=== PATIENT | male | born 1985 | race Caucasian/White ===

== ENCOUNTER 2016-09-30 11:44 | Emergency (ER) | payer OTHER ==
[~2016-09-30] VITALS: Ht 175.3 cm; Wt 68.0 kg
[2016-09-30] MEDS ORDERED: fentaNYL 100 mcg/2 mL IV ONE (12:15)
[2016-09-30] MEDS ORDERED: Ketorolac 30mg Inj IV ONE (12:15)
[2016-09-30 13:07] LABS: ALANINE AMINOTRANSFERASE 68 U/L (3-41); ALBUMIN/GLOBULIN RATIO 1.2 (1.0-2.7); ANION GAP 16 (5-15); ASPARTATE AMINO TRANSFERASE 46 U/L (5-40); CALCIUM 9.2 mg/dL (8.6-10.2); CARBON DIOXIDE 27 mEQ/L (20-30); CHLORIDE 91 mEQ/L (98-107); GLOMERULAR FILTRATION RATE > 60 mL/min (>60); HEMOLYSIS 6; POTASSIUM 3.8 mEQ/L (3.4-4.9); SODIUM 134 mEQ/L (135-145); TOTAL PROTEIN 7.3 g/dL (6.6-8.7)
[2016-09-30 13:08] LABS: APPEARANCE,URINE CLEAR; KETONES,URINE NEGATIVE (NEGATIVE); LEUKOCYTE ESTERASE ,URINE NEGATIVE (NEGATIVE); NITRITE,URINE NEGATIVE (NEGATIVE); PH,URINE 6 (4.5-8.0); PROTEIN,URINE NEGATIVE (NEGATIVE); UROBILINOGEN,URINE 1 MG/DL (0.0-1.0)
[2016-09-30 13:24] LABS: BASOPHILS % (AUTO) 1.4 % (0.0-2.0); EOSINOPHILS % (AUTO) 0.3 % (0.0-3.0); LYMPHOCYTES % (AUTO) 21.6 % (20.0-45.0); MEAN CORPUSCULAR HEMOGLOBIN 31.9 PG (27.0-31.0); MEAN CORPUSCULAR HGB CONC 34.3 G/DL (32.0-36.0); MEAN CORPUSCULAR VOLUME 93 FL (80-99); MEAN PLATELET VOLUME 7.8 FL (6.5-10.1); MONOCYTES % (AUTO) 12.7 % (1.0-10.0); PLATELET COUNT 152 K/UL (150-450); RED BLOOD COUNT 4.36 M/UL (4.70-6.10); RED CELL DISTRIBUTION WIDTH 11.1 % (11.6-14.8); WHITE BLOOD COUNT 9.1 K/UL (4.8-10.8)
[2016-09-30 13:27] LABS: INR 1.1 (0.9-1.1); PROTHROMBIN TIME 11.4 SEC (9.30-11.50)
[2016-09-30 13:38] LABS: BILIRUBIN,DIRECT 0.3 mg/dL (0.1-0.3)
[2016-09-30 14:20] VITALS: BP 130/67
--- NOTE | 2016-09-30 14:26 | Diagnostic Imaging Report ---
Indication: Headache Technique: Contiguous 5 mm thick transaxial imaging of the head obtained in a Siemens Sensation [address] scanner. Soft tissue and bone windows generated. Total Dose length Product (DLP): [address] Dose Index Volume (CTDIvol): 70.38 mGy Comparison: none Findings: The size and configuration of the cortical sulci, basal cisterns, and ventricles are within normal limits for age. There is no mass effect, midline shift, or edema identified. There is no evidence of acute hemorrhage or abnormal intra-axial or extra-axial fluid collections. The bones and soft tissues are unremarkable. Impression: No mass effect, edema or acute bleed. The CT scanner at [facility] is accredited by the [employer] and the scans are performed using protocols designed to limit radiation exposure to as low as reasonably achievable to attain images of sufficient resolution adequate for diagnostic evaluation.
--- NOTE | 2016-09-30 14:27 | Diagnostic Imaging Report ---
Indication: Chest Pain Comparison: None A single view chest radiograph was obtained. Findings: Cardiomediastinal appearance is within normal limits for age. Pulmonary vascularity is appropriate. The diaphragmatic contour is smooth and costophrenic angles are sharp. No pleural effusions are identified. The bones are unremarkable. Impression: No acute findings
--- NOTE | 2016-09-30 15:06 | Emergency Room Report ---
History of Present Illness General Chief Complaint: Flu Like Symptoms Source: Patient Present Illness HPI Patient has been ill since Monday. He's been having fevers and worsening sore throat. He said the worst headache of his life. He's had shaking chills. Preceding this he was treated for pharyngeal gonorrhea with Rocephin and azithromycin ( day course - taking BID). Yesterday he saw his doctor and got a shot of Toradol IM. No NVD. Drinking fluids but feels dehydrated. Head feels "inflamed" and there is some radiation to neck, but no neck stiffness. Pain is 9/10. Generalized weakness. HIV test was negative last week. He is taking prophylaxis. No rashes, dysuria. He was sent to ED to rule out meningitis. Allergies: Coded Allergies: No Known Allergies (Unverified , 09/30/16) Patient History Past Medical History: see triage record Social History: Denies: alcohol use, drug use, smoking Social History Narrative EMPLOYEE RELATIONS MANAGER for non-profit involving [employer] Reviewed Nursing Documentation: PMH: Agreed, PSxH: Agreed Nursing Documentation-PMH Past Medical History: No Stated History Review of Systems All Other Systems: negative except mentioned in HPI Physical Exam Vital Signs Date Time Temp Pulse Resp B/P Pulse Ox O2 Delivery O2 Flow Rate FiO2 09/30/16 11:45 89 20 Room Air 09/30/16 11:51 102.7 127/78 99 Sp02 EP Interpretation: reviewed, normal General Appearance: well appearing, GCS 15, mild distress, other - febrile Head: normocephalic Eyes: bilateral eye EOMI, bilateral eye PERRL, bilateral eye normal inspection ENT: moist mucus membranes Neck: supple, no meningismus, no bony tend Respiratory: lungs clear, normal breath sounds Cardiovascular #1: regular rate, rhythm Cardiovascular #2: 2+ radial (R) Gastrointestinal: normal inspection, normal bowel sounds, non tender, no mass, non-distended Musculoskeletal: back normal, gait/station normal, normal range of motion Neurologic: alert, oriented x3, motor strength/tone normal, sensory intact, cerebellar normal, normal gait, speech normal Psychiatric: mood/affect normal Skin: normal inspection, warm/dry, other - hot Procedures Lumbar Puncture Consent: Written Location: L3-L4 Anesthesia: 1% Lidocaine Volume Anesthetic (ccs): 2 Prep: bedadine Needle Size: 3 1/2 CSF: clear, other - OP = 15 Post-Procedure: recumbent position Attempts: One Complications: none Medical Decision Making Diagnostic Impression: Primary Impression: Fever Qualified Codes: R50.81 - Fever presenting with conditions classified elsewhere Additional Impressions: Partially treated GC Cephalgia Qualified Codes: G44.89 - Other headache syndrome ER Course Patient presents with headache and fever after sitting antibiotics. The fact that he was Curt treated could mask subtle signs of meningitis. The patient needs to be evaluated with labs, CT, and possibly LP. Labs with normal WBC. CT neg. The patient's improved with IV hydration and analgesia. My suspicion is low but because of the pretreatment with antibiotics an LP is performed. The risks were explained to the patient. Please see procedure note. CSF was clear. Patient improved. CSF negative. Patient stable for outpatient observation and treatment. Laboratory Tests Test 09/30/16 12:20 09/30/16 14:50 White Blood Count 9.1 K/UL (4.8-10.8) Red Blood Count 4.36 M/UL (4.70-6.10) L Hemoglobin 13.9 G/DL (14.2-18.0) L Hematocrit 40.6 % (42.0-52.0) L Mean Corpuscular Volume 93 FL (80-99) Mean Corpuscular Hemoglobin 31.9 PG (27.0-31.0) H Mean Corpuscular Hemoglobin Concent 34.3 G/DL (32.0-36.0) Red Cell Distribution Width 11.1 % (11.6-14.8) L Platelet Count 152 K/UL (150-450) Mean Platelet Volume 7.8 FL (6.5-10.1) Neutrophils (%) (Auto) 64.0 % (45.0-75.0) Lymphocytes (%) (Auto) 21.6 % (20.0-45.0) Monocytes (%) (Auto) 12.7 % (1.0-10.0) H Eosinophils (%) (Auto) 0.3 % (0.0-3.0) Basophils (%) (Auto) 1.4 % (0.0-2.0) Prothrombin Time 11.4 SEC (9.30-11.50) Prothrombin Time INR 1.1 (0.9-1.1) PTT 31 SEC (23-33) Urine Color Yellow Urine Appearance Clear Urine pH 6 (4.5-8.0) Urine Specific [place] 1.010 (1.005-1.035) Urine Protein Negative (NEGATIVE) Urine Glucose (UA) Negative (NEGATIVE) Urine Ketones Negative (NEGATIVE) Urine Occult Blood Negative (NEGATIVE) Urine Nitrite Negative (NEGATIVE) Urine Bilirubin Negative (NEGATIVE) Urine Urobilinogen 1 MG/DL (0.0-1.0) H Urine Leukocyte Esterase Negative (NEGATIVE) Sodium Level 134 mEQ/L (135-145) L Potassium Level 3.8 mEQ/L (3.4-4.9) Chloride Level 91 mEQ/L (98-107) L Carbon Dioxide Level 27 mEQ/L (20-30) Anion Gap 16 (5-15) H Blood Urea Nitrogen 12 mg/dL (7-23) Creatinine 1.0 mg/dL (0.7-1.2) Estimate Glomerular Filtration Rate > 60 mL/min (>60) Glucose Level 96 mg/dL (74-106) Lactic Acid Level 1.00 mmol/L (0.66-2.22) Calcium Level 9.2 mg/dL (8.6-10.2) Total Bilirubin 1.8 mg/dL (0.0-1.2) H Direct Bilirubin 0.3 mg/dL (0.1-0.3) Aspartate Amino Transferase (AST) 46 U/L (5-40) H Alanine Aminotransferase (ALT) 68 U/L (3-41) H Alkaline Phosphatase 56 U/L (40-129) Total Creatine Kinase 391 U/L (38-174) H Total Protein 7.3 g/dL (6.6-8.7) Albumin 4.0 g/dL (3.5-5.2) Globulin 3.3 g/dL Albumin/Globulin Ratio 1.2 (1.0-2.7) CSF Appearance Clear CSF Color Colorless CSF WBC 1 /CU MM (0-5) CSF RBC 2 /CU MM CSF Neutrophils % % CSF Lymphocytes % % CSF Monocytes % % CSF Crenated Cells % CSF Glucose 57 mg/dL (50-80) CSF Total Protein 38 mg/dL (15-45) Chest X-Ray Diagnostic Results EP Interpretation: Yes Findings: no consolidation, no effusion, no pneumothorax, no acute cardiopulmonary disease Number of Views: 1 CT/MRI/US Diagnostic Results CT/MRI/US Diagnostic Results : Imaging Test Ordered: head Impression nl brain, bones and ST Status: improved Disposition: HOME, SELF-CARE Condition: Improved Scripts Hydrocodone Bit/Acetaminophen 5-325* (NORCO 5-325*) 1 Each Tablet 1 TAB ORAL Q6H Y for For Pain, #10 TAB 0 Refills Prov: Nathen Hilario M.D. 09/30/16 Ibuprofen* (MOTRIN*) 600 Mg Tablet 600 MG ORAL Q6H Y for For Pain, #16 TAB Prov: Nathen Hilario M.D. 09/30/16 Doxycycline Monohydrate* (DOXYCYCLINE MONOHYDRATE*) 100 Mg Capsule 100 MG ORAL Q12H, #14 CAP 0 Refills Prov: Nathen Hilario M.D. 09/30/16 Referrals: NESHA DEE (PCP) Nathen Hilario M.D. Sep 30, 2016 15:06
[2016-09-30 15:26] LABS: GLUCOSE,CSF 57 mg/dL (50-80)
[2016-09-30] MEDS ORDERED: DOXYCYCLINE MO100 MG ORAL (15:46)
[2016-09-30] MEDS ORDERED: NORCO 5-325 TA1 EACH ORAL (15:46)
[2016-09-30] MEDS ORDERED: IBUPROFEN600 MG ORAL (15:46)
[2016-09-30 16:00] VITALS: BP 132/68
[2016-09-30 16:13] LABS: APPEARANCE,CSF CLEAR
[2016-09-30 16:14] LABS: COLOR,CSF COLORLESS
[2016-09-30 16:16] LABS: WHITE BLOOD CELL,CSF 1 /CU MM (0-5)
[2016-09-30 17:28] VITALS: BP 125/70
[2016-09-30 17:29] VITALS: BP 125/70
[2016-10-03 12:58] LABS: CSF COMMENT PATHOLOGIST COMMENT
== END 2016-09-30 17:30 | disposition home or self-care (01) ==
LOC: EMR 12:10
DX: R50.9 Fever, unspecified (principal); A54.9 Gonococcal infection, unspecified; R51 Headache
CPT/HCPCS: 36415; 62270; 70450; 71010; 80053; 81003; 82248; 82550; 82945; 83605; 84157; 85025; 85610; 85730; 87040; 87070; 87205; 87220; 89051; 96360; 96361; 96374; 96375; 99284; J1885; J3010